=== PATIENT | female | born 1950 | race Two or more races ===

== ENCOUNTER 2016-11-26 17:03 | Emergency (ER) | payer OTHER ==
[~2016-11-26] VITALS: Ht 154.9 cm; Wt 49.9 kg
[~2016-11-26 17:03] MED LIST: BENAZEPRIL HCL20 MG ORAL; CIPRO500 MG PO; GLUCOTROL XL5 MG ORAL; ZOCOR20 MG ORAL
[2016-11-26 17:21] VITALS: BP 159/92
[2016-11-26] MEDS ORDERED: KNEE STABILIZE1 EACH MC (18:41)
[2016-11-26] MEDS ORDERED: TYLENOL EXTRA500 MG ORAL (18:41)
[2016-11-26 19:05] VITALS: BP 159/92
--- NOTE | 2016-11-26 22:47 | Emergency Room Report ---
History of Present Illness General Chief Complaint: Pain Source: Patient Present Illness HPI The patient is a 66-year-old female presenting for right knee pain which has been present for the past few weeks. The patient does not remember injuring the knee in any way. Pain is worse with movement such as walking.The pain is described as an 8/10 dull ache and does not radiate from the knee. The patient denies numbness or tingling of the extremity.The patient denies prior workup for this pain. The patient states that she will be seeing her primary care physician in the next week. Allergies: Coded Allergies: CODEINE (Verified Allergy, Unknown, 02/03/09) Patient History Past Medical History: see triage record Pertinent Family History: none Now: No Reviewed Nursing Documentation: PMH: Agreed, PSxH: Agreed Nursing Documentation-PMH Hx Hypertension: Yes Hx Asthma: Yes Hx Diabetes: Yes Review of Systems All Other Systems: negative except mentioned in HPI Physical Exam Vital Signs Date Time Temp Pulse Resp B/P Pulse Ox O2 Delivery O2 Flow Rate FiO2 11/26/16 17:09 97.9 97 16 159/92 99 11/26/16 17:21 Room Air Sp02 EP Interpretation: reviewed, normal General Appearance: no apparent distress, alert, GCS 15, non-toxic Head: normocephalic, atraumatic ENT: hearing grossly normal, normal pharynx, no angioedema, normal voice Musculoskeletal: back normal, gait/station normal, normal range of motion, tender - TTP over medial knee Neurologic: alert, oriented x3, responsive, motor strength/tone normal, sensory intact, speech normal Psychiatric: judgement/insight normal, memory normal, mood/affect normal, no suicidal/homicidal ideation Skin: normal color, no rash, warm/dry, well hydrated Medical Decision Making PA Attestation Dr. Marie is my supervising physician. Patient management was discussed with my supervising physician Diagnostic Impression: Primary Impression: Strain of knee ER Course The patient is a 66-year-old female presenting for right knee pain which has been present for the past few weeks. Ddx considered include but not limited to sprain/strain, fracture, contusion PE: Vitals within normal limits. No apparent distress. Right knee: Full active range of motion. No edema or erythema. No obvious deformity. TTP over medial knee. No laxity. Xray unremarkable The pt will be DC'ed home with prescription for tylenol. ER precautions given and pt will FU with PMD Other X-Ray Diagnostic Results Other X-Ray Diagnostic Results : X-Ray Ordered: R knee Date: Nov 26, 2016 EP Interpretation: Yes Findings: no fractures, no dislocation, no soft tissue swelling Number of Views: 3 PA Scribe Text I am acting as scribe for my supervising physician. My supervising physician's interpretation of the R knee xrays are there are no fractures, dislocations or soft tissue swelling. Last Vital Signs Date Time Temp Pulse Resp B/P Pulse Ox O2 Delivery O2 Flow Rate FiO2 11/26/16 17:21 97.9 85 16 159/92 99 Room Air Status: improved Disposition: HOME, SELF-CARE Condition: Improved Scripts Leg Brace (KNEE STABILIZER) 1 Each Each 1 EACH , #1 Prov: ANT REBOLLEDO 11/26/16 Acetaminophen* (TYLENOL EXTRA STRENGTH*) 500 Mg Tablet 500 MG ORAL Q8H Y for Prn Headache/Temp > 101, #30 TAB 0 Refills Prov: ANT REBOLLEDO 11/26/16 Referrals: [facility] (PCP) Patient Instructions: Knee Pain Additional Instructions: I discussed my findings with the patient. All questions and concerns have been answered. Treatment and medication compliance have been addressed. I advised the patient that they need to follow up with PMD in 3-5 days. Return to ED if pain remains or worsens, numbness or tingling occurs, new rash is noticed, fever is noticed, or if needed for any reason. Patient verbalized understanding of discharge instructions. ANT REBOLLEDO Nov 26, 2016 22:47
--- NOTE | 2016-11-27 11:37 | Diagnostic Imaging Report ---
Indication: Pain 3 views of the right knee were obtained. Findings: No acute fracture, malalignment, or joint effusion are identified. Joint space is relatively well-maintained. Bone mineralization is within normal limits for age. Impression: Negative exam
== END 2016-11-26 19:05 | disposition home or self-care (01) ==
LOC: EMR 17:40
DX: S86.811A Strain of other muscle(s) and tendon(s) at lower leg level, right leg, initial encounter (principal); J45.909 Unspecified asthma, uncomplicated; E11.9 Type 2 diabetes mellitus without complications; I10 Essential (primary) hypertension; Z88.6 Allergy status to analgesic agent; X58.XXXA Exposure to other specified factors, initial encounter; Y92.9 Unspecified place or not applicable; Y99.8 Other external cause status
CPT/HCPCS: 99284

== ENCOUNTER 2020-01-23 20:52 | Emergency (ER) | payer MEDICARE, OTHER ==
[~2020-01-23] VITALS: Ht 160 cm; Wt 63.5 kg
[~2020-01-23 20:52] MED LIST changes: +KNEE STABILIZE1 EACH MC; +TYLENOL EXTRA500 MG ORAL
[2020-01-23 21:14] VITALS: BP 170/81
--- NOTE | 2020-01-23 21:25 | Emergency Room Report ---
History of Present Illness General Chief Complaint: Lower Extremity Injury Source: Patient, Family Member Present Illness HPI This is a 69-year-old female with history of diabetes high blood pressure. She presents with chief complaint of left ankle pain. She was walking this afternoon and stepped into a divot. She sustained injury to her ankle and distal tib-fib area. She has pain to the area. Worse with walking. Better with rest. Pain is 7 out of 10. No other trauma. Did not pass out. Denies any other injury. Allergies: Coded Allergies: CODEINE (Verified Allergy, Unknown, 02/03/09) Patient History Past Medical History: see triage record, old chart reviewed Past Surgical History: other Pertinent Family History: none Social History: Denies: smoking Now: No Immunizations: other Reviewed Nursing Documentation: PMH: Agreed; PSxH: Agreed Nursing Documentation-PMH Hx Hypertension: Yes Hx Asthma: Yes Hx Diabetes: Yes Review of Systems Eye: Denies: eye pain, blurred vision ENT: Denies: ear pain, nose congestion, throat swelling Respiratory: Denies: cough, shortness of breath Cardiovascular: Denies: chest pain, palpitations Gastrointestinal: Denies: abdominal pain, diarrhea, nausea, vomiting Musculoskeletal: Reports: joint pain; Denies: back pain Skin: Denies: rash Neurological: Denies: headache, numbness Endocrine: Denies: increased thirst, increased urine Hematologic/Lymphatic: Denies: easy bruising All Other Systems: negative except mentioned in HPI Physical Exam Vital Signs Date Time Temp Pulse Resp B/P (MAP) Pulse Ox O2 Delivery O2 Flow Rate FiO2 01/23/20 21:14 98.2 100 16 170/81 (110) 97 Room Air Vitals with high blood pressure Sp02 EP Interpretation: reviewed, normal General Appearance: well appearing, no apparent distress, alert Head: normocephalic, atraumatic Eyes: bilateral eye PERRL, bilateral eye EOMI ENT: hearing grossly normal, normal pharynx Neck: full range of motion, supple, no meningismus Respiratory: chest non-tender, lungs clear, normal breath sounds Cardiovascular #1: regular rate, rhythm, no murmur Gastrointestinal: normal bowel sounds, non tender, no mass, no organomegaly, no bruit, non-distended Musculoskeletal: back normal, normal range of motion, gait/station normal, other - Left ankle: She has abrasion just above the lateral malleolus to the distal tib-fib area. Ankle is stable. Nontender. Pulse normal. Psychiatric: mood/affect normal Procedures Splinting Splinting : Consent: Verbal Location: left ankle Pre-Made Type: FÁTIMA wrap Pre-Proc Neuro Vasc Exam: normal Post-Proc Neuro Vasc Exam: normal Patient Tolerated: Well Complications: None Medical Decision Making Diagnostic Impression: Primary Impression: Left ankle sprain Qualified Codes: S93.402A - Sprain of unspecified ligament of left ankle, initial encounter Additional Impression: Abrasion of ankle, left Qualified Codes: S90.512A - Abrasion, left ankle, initial encounter ER Course Patient with soft tissue injury. No evidence of any fracture dislocation. Will discharge home. Other X-Ray Diagnostic Results Other X-Ray Diagnostic Results : X-Ray ordered: Left ankle x-rays # of Views/Limited Vs Complete: 3 View Indication: Pain EP Interpretation: Yes Interpretation: no dislocation, no soft tissue swelling, no fractures Impression: No acute disease Electronically Signed by: Albert Tyson MD Last Vital Signs Date Time Temp Pulse Resp B/P (MAP) Pulse Ox O2 Delivery O2 Flow Rate FiO2 01/23/20 21:14 98.2 100 16 170/81 (110) 97 Room Air Status: improved Disposition: HOME, SELF-CARE Scripts Ibuprofen* (MOTRIN*) 600 Mg Tablet 600 MG ORAL THREE TIMES A DAY, #30 TAB 0 Refills Prov: Albert Tyson MD 01/23/20 Patient Instructions: Ankle Sprain Additional Instructions: Elevate leg. Ice pack to area. Weightbearing as tolerated. Follow-up with in 7 days. Return if worse. Albert Tyson MD Jan 23, 2020 21:25
[2020-01-23] MEDS ORDERED: IBUPROFEN600 MG ORAL (21:52)
--- NOTE | 2020-01-24 12:21 | Diagnostic Imaging Report ---
Indication: left ankle pain Comparison: None Findings: 3 views of the left ankle obtained. No acute fracture, malalignment, periostitis, or osteochondral defects are identified. Plantar calcaneal spur noted. Impression: No acute findings
== END 2020-01-23 22:00 | disposition home or self-care (01) ==
LOC: EMR 22:00
DX: S93.402A Sprain of unspecified ligament of left ankle, initial encounter (principal); S90.512A Abrasion, left ankle, initial encounter; X58.XXXA Exposure to other specified factors, initial encounter; Y92.9 Unspecified place or not applicable; Z88.6 Allergy status to analgesic agent; E11.9 Type 2 diabetes mellitus without complications; I10 Essential (primary) hypertension
CPT/HCPCS: 99283